=== PATIENT | male | born 1985 | race Caucasian/White ===

== ENCOUNTER 2017-06-06 15:18 | Emergency (ER) | payer OTHER ==
[~2017-06-06] VITALS: Ht 182.8 cm; Wt 90.7 kg
[2017-06-06] MEDS ORDERED: ZYRTEC10 MG PO (17:01)
[2017-06-06] MEDS ORDERED: DELTASONE20 M1 PO (17:01)
== END 2017-06-06 17:06 | disposition home or self-care (01) ==
LOC: ED 15:18
DX: J02.9 Acute pharyngitis, unspecified (principal)

== ENCOUNTER → 2020-12-22 | Outpatient (CLI) | payer OTHER ==
[~2020-12-22] MED LIST: DELTASONE20 M1 PO; ZYRTEC10 MG PO
== END | disposition home or self-care (01) ==
LOC: US 14:30
PROVIDERS: ATTEND Urology
DX: N43.3 Hydrocele, unspecified (principal)

== ENCOUNTER 2025-02-10 14:29 | Emergency (ER) | payer OTHER, BC ==
[~2025-02-10] VITALS: Ht 182.8 cm; Wt 95.3 kg
[2025-02-10] MEDS ORDERED: CEPHALEXIN 500 MG CAP PO ONE (14:45)
[2025-02-10] MEDS ORDERED: Tdap Vaccine 0.5 ML SYR (Adult Vaccine) IM ONE (14:45)
[2025-02-10] MEDS ORDERED: CEPHALEXIN500 M1 PO (16:03)
[2025-02-10] MEDS ORDERED: Acetaminophen/Oxycodone 5 MG/325 MG TABLET PO ONE (16:10)
== END 2025-02-10 16:22 | disposition home or self-care (01) ==
LOC: ED 14:29
DX: S61.210A Laceration without foreign body of right index finger without damage to nail, initial encounter (principal); W22.8XXA Striking against or struck by other objects, initial encounter; Y93.89 Activity, other specified; Y92.89 Other specified places as the place of occurrence of the external cause; Y99.8 Other external cause status